=== PATIENT | female | born 1995 | race Caucasian/White ===

== ENCOUNTER 2016-12-23 17:47 | Emergency (ER) | payer BC ==
[2016-12-23 17:55] VITALS: BP 123/63; PULSE 75; RESP 20; TEMP 98.4
--- NOTE | 2016-12-23 18:02 | ED ---
Upper Extremity HPI - General Chief Complaint: Extremity Injury, Upper Stated Complaint: L hand injury Time Seen by Provider: 12/23/16 17:56 Source: patient, RN notes reviewed Mode of arrival: ambulatory Limitations: no limitations - History of Present Illness Initial Comments: 21-year-old female presents emergency Department chief complaint left hand some injury. She states that she was playing basketball and states that the ball caught her thumb and bend it. Patient went to pain at the base of her thumb and worse with movement. She states pain radiates up into her forearm. Patient denies any paresthesias. Patient denies any wrist pain or any pain over her other digits. Place: outdoors - Related Data Home Medications Medication Instructions Recorded Confirmed Levofloxacin [Levaquin] 1 tab PO DAILY 12/20/15 12/20/15 Promethazine 6.25MG/5Ml [Phenergan 5 ml PO QID 12/20/15 12/20/15 Syrup] predniSONE 1 tab PO BID 12/20/15 12/20/15 Previous Rx's Medication Instructions Recorded Albuterol Inhaler [Ventolin Hfa 2 puff INHALATION Q4HR PRN #1 12/21/15 Inhaler] inhaler Benzonatate [Tessalon Perles] 200 mg PO TID PRN #30 capsule 12/21/15 Ibuprofen [Motrin] 600 mg PO Q8HR PRN #30 tab 12/23/16 Allergies Allergy/AdvReac Type Severity Reaction Status Date / Time Sulfa (Sulfonamide AdvReac Swelling Verified 12/23/16 17:55 Antibiotics) Review of Systems ROS Statement: Those systems with pertinent positive or pertinent negative responses have been documented in the HPI. ROS Other: All systems not noted in ROS Statement are negative. Past Medical History Past Medical History: No Reported History History of Any Multi-Drug Resistant Organisms: None Reported Past Surgical History: No Surgical Hx Reported Additional Past Surgical History / Comment(s): cyst on right foot removed Past Psychological History: Anxiety Smoking Status: Current every day smoker Past Alcohol Use History: None Reported Past Drug Use History: None Reported General Exam Limitations: no limitations General appearance: alert, in no apparent distress Respiratory exam: Present: normal lung sounds bilaterally. Absent: respiratory distress, wheezes, rales, rhonchi, stridor Cardiovascular Exam: Present: regular rate, normal rhythm, normal heart sounds. Absent: systolic murmur, diastolic murmur, rubs, gallop, clicks Extremities exam: Present: other (Left hand there is tenderness over the first MCP, there is essentially no swelling no ecchymosis neurovascular intact there is no snuffbox tenderness there is no tenderness over digits 2 through 5 and no radius or ulnar tenderness) Skin exam: Present: warm, dry, intact, normal color. Absent: rash Course Vital Signs 12/23/16 17:52 Temperature 98.4 F Pulse Rate 75 Respiratory 20 Rate Blood Pressure 123/63 O2 Sat by Pulse 98 Oximetry Medical Decision Making - Medical Decision Making 21-year-old female presented for left hand thumb injury. There is no acute fracture. Patient has a left thumb sprain. Patient be discharged with ibuprofen, Abel wrap. Return parameters were discussed. Disposition Clinical Impression: Sprain of left thumb Disposition: HOME SELF-CARE Condition: Stable Instructions: Hand Sprain (ED) Additional Instructions: Please return to the Emergency Department if symptoms worsen or any other concerns. Prescriptions: Ibuprofen [Motrin] 600 mg PO Q8HR PRN #30 tab PRN Reason: Pain Referrals: Darin Novoa MD [Primary Care Provider] - 1-2 days Time of Disposition: 18:14
--- NOTE | 2016-12-23 18:50 | XR ---
EXAMINATION TYPE: XR hand complete LT DATE OF EXAM: 12/23/2016 COMPARISON: NONE HISTORY: Pain TECHNIQUE: 3 views FINDINGS: I see no fracture nor dislocation. Metacarpals are intact. There are no erosions. IMPRESSION: Negative left hand exam.
== END 2016-12-23 18:27 | disposition home or self-care (01) ==
LOC: EC 17:47
DX: S63.602A Unspecified sprain of left thumb, initial encounter (principal); F17.200 Nicotine dependence, unspecified, uncomplicated; Z79.52 Long term (current) use of systemic steroids; Z79.899 Other long term (current) drug therapy; Z88.2 Allergy status to sulfonamides; W21.05XA Struck by basketball, initial encounter; Y93.67 Activity, basketball
CPT/HCPCS: 99283

== ENCOUNTER 2017-03-07 12:49 | Emergency (ER) | payer BC ==
[2017-03-07 12:56] VITALS: BP 118/57; PULSE 87; RESP 18; TEMP 99
--- NOTE | 2017-03-07 13:03 | ED ---
General Adult HPI - General Chief complaint: Eye Problems Stated complaint: Eye Redness/Congestion Time Seen by Provider: 03/07/17 12:54 Source: patient, RN notes reviewed Mode of arrival: ambulatory Limitations: no limitations - History of Present Illness Initial comments: 21-year-old female presents to the emergency department with a chief complaint of right eye redness and drainage along with cough and congestion. Patient states she's been sick for about 2 days. Patient denies any high fevers with this. Patient states she hasn't had any nausea or vomiting. Patient does admit to history of pneumonia in the past. Patient states that she is no changes in vision it is itchy and irritated. Patient denies any ear pain or throat pain. Patient states she was concerned due to the eye redness with drainage along with the congestion so she thought that she should be evaluated. Patient denies any other symptoms at this time. Patient denies any recent fever, chills, shortness of breath, chest pain, back pain, abdominal pain, nausea vomiting, numbness or tingling, dysuria or hematuria, constipation or diarrhea, headaches or visual changes, or any other current symptoms. - Related Data Previous Rx's Medication Instructions Recorded Tobramycin 0.3% Ophth Oint [Tobrex 1 applic BOTH EYES TID #1 tube 03/07/17 0.3% Ophth Oint] Allergies Allergy/AdvReac Type Severity Reaction Status Date / Time Sulfa (Sulfonamide AdvReac Swelling Verified 03/07/17 12:56 Antibiotics) Review of Systems ROS Statement: Those systems with pertinent positive or pertinent negative responses have been documented in the HPI. ROS Other: All systems not noted in ROS Statement are negative. Past Medical History Past Medical History: No Reported History History of Any Multi-Drug Resistant Organisms: None Reported Past Surgical History: No Surgical Hx Reported Additional Past Surgical History / Comment(s): cyst on right foot removed Past Psychological History: Anxiety Smoking Status: Current every day smoker Past Alcohol Use History: None Reported Past Drug Use History: None Reported General Exam - General Exam Comments Initial Comments: General exam: Alert, active, comfortable in no apparent distress Head: Normocephalic Eyes: Normal reaction of pupils, equal size, normal range of extraocular motion , right eye conjunctival injection with purulent-like discharge Ears: normal external ear canals, pink tympanic membranes with normal cone of light Nose: clear with pink turbinates Throat: no erythema or exudates with normal sized tonsils Neck: no masses, no nuchal rigidity Chest: no chest wall deformity Lungs: equal air entry with no crackles or wheeze CVS: S1 and S2 normal with no audible mumurs, regular rhythm Spine: no scoliosis or deformity Skin: no rashes Neurological: No focal deficits, tone is normal in all 4 extremities Limitations: no limitations Course Vital Signs 03/07/17 12:54 Temperature 99 F Pulse Rate 87 Respiratory 18 Rate Blood Pressure 118/57 O2 Sat by Pulse 98 Oximetry Medical Decision Making - Medical Decision Making 21-year-old female presents emergency Department what appears to be right eye contact right lung with cough cold Raynaud's. We discussed this could be viral but due to the purulent discharge we'll put her in antibiotics ointment. We did discuss close follow-up we did discuss return parameters discussed all results. Patient stated that she understood and she is in agreement plan. All questions have been answered. She will be discharged Disposition Clinical Impression: Bacterial conjunctivitis, Upper respiratory infection Disposition: HOME SELF-CARE Condition: Stable Instructions: Upper Respiratory Infection (ED), Conjunctivitis (ED) Additional Instructions: Please use medication as discussed. Please follow up with family doctor if symptoms have not improved over the next two days. Please return to the emergency room if your symptoms increase or worsen or for any other concerns. Prescriptions: Tobramycin 0.3% Ophth Oint [Tobrex 0.3% Ophth Oint] 1 applic BOTH EYES TID #1 tube Referrals: Darin Novoa MD [Primary Care Provider] - 1-2 days Time of Disposition: 13:50
--- NOTE | 2017-03-07 13:49 | XR ---
EXAMINATION TYPE: XR chest 2V DATE OF EXAM: 03/07/2017 COMPARISON: 12/20/2015 INDICATION: Cough difficulty in breathing TECHNIQUE: Frontal and lateral views of the chest are obtained. FINDINGS: The heart size is normal. The pulmonary vasculature is normal. The lungs are clear. IMPRESSION: 1. No acute pulmonary process.
== END 2017-03-07 13:49 | disposition home or self-care (01) ==
LOC: EC 12:49
DX: H10.89 Other conjunctivitis (principal); J06.9 Acute upper respiratory infection, unspecified; F17.200 Nicotine dependence, unspecified, uncomplicated; Z88.2 Allergy status to sulfonamides
CPT/HCPCS: 71020; 99283

== ENCOUNTER 2018-03-17 16:48 | Emergency (ER) | payer OTHER, BC ==
[2018-03-17 17:16] VITALS: BP 115/61; PULSE 66; RESP 18; TEMP 98.1
[2018-03-17] MEDS ORDERED: HYDROcodone/APAP 5-325MG 1 EACH TAB PO STA ×2 (20:12→20:22)
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
--- NOTE | 2018-03-17 20:15 | XR ---
EXAMINATION TYPE: XR knee complete RT DATE OF EXAM: 03/17/2018 COMPARISON: NONE HISTORY: Knee pain TECHNIQUE: 3 views FINDINGS: I see no fracture nor dislocation. Joint spaces are normal. There is no sign of joint effus ion. IMPRESSION: Negative right knee exam.
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
== END 2018-03-17 20:45 | disposition home or self-care (01) ==
LOC: EC 16:48
DX: M25.561 Pain in right knee (principal); R51 Headache; R40.2142 Coma scale, eyes open, spontaneous, at arrival to emergency department; R40.2252 Coma scale, best verbal response, oriented, at arrival to emergency department; R40.2362 Coma scale, best motor response, obeys commands, at arrival to emergency department; F17.200 Nicotine dependence, unspecified, uncomplicated; Z88.2 Allergy status to sulfonamides; V89.2XXA Person injured in unspecified motor-vehicle accident, traffic, initial encounter; Y92.410 Unspecified street and highway as the place of occurrence of the external cause
CPT/HCPCS: 70450; 72125; 99284

== ENCOUNTER 2018-09-02 00:49 | Emergency (ER) | payer BC ==
[2018-09-02 00:57] VITALS: RESP 20
[2018-09-02] MEDS ORDERED: PROMETHAZ-COD 6.25-10 MG/5 ML 5 ML CUP PO STA (01:08)
[2018-09-02] MEDS ORDERED: methylPREDNISolone SOD SUCCI 125 MG/2 ML VIAL IM ONE (01:08)
--- NOTE | 2018-09-02 01:12 | ED ---
URI HPI - General Chief Complaint: Upper Respiratory Infection Stated Complaint: 30 day cough/ Nosebleed/Back Pain Time Seen by Provider: 09/02/18 00:59 Source: patient Mode of arrival: ambulatory Limitations: no limitations - History of Present Illness Initial Comments: 23-year-old female patient presents to the emergency department today for evaluation of cough 1 month. Patient states that she developed upper respiratory infection approximately one month ago. Patient states that she started to improve, but about a week ago the cough seemed to suddenly get worse again. Patient states initially she was coughing up sputum, denies any hemoptysis. She denies any fevers or chills with this. Patient states she is having upper back pain and chest discomfort with coughing. States she has also had some epistaxis over the last week. She is able to get the bleeding to stop. She does admit to smoking of one pack of cigarettes per day. Patient denies any recent rash, chest pain, abdominal pain, nausea, vomiting, diarrhea, constipation, back pain, numbness, tingling, weakness, hematuria, dysuria, urinary urgency, urinary frequency, headache, visual changes, or any other complaints. - Related Data Previous Rx's Medication Instructions Recorded Albuterol Sulfate [Proair Hfa] 1 - 2 puff INHALATION Q6HR PRN #1 09/02/18 inhaler Azithromycin [Zithromax Z-pack] 0 mg PO DIRECTED #6 tab 09/02/18 Promethaz-Cod 6.25-10 mg/5 ml 5 ml PO Q4HR PRN 3 Days #90 ml 09/02/18 [Phenergan with Codeine] predniSONE 50 mg PO DAILY #5 tablet 09/02/18 Allergies Allergy/AdvReac Type Severity Reaction Status Date / Time Sulfa (Sulfonamide AdvReac Swelling Verified 09/02/18 00:57 Antibiotics) Review of Systems ROS Statement: Those systems with pertinent positive or pertinent negative responses have been documented in the HPI. ROS Other: All systems not noted in ROS Statement are negative. Past Medical History Past Medical History: No Reported History History of Any Multi-Drug Resistant Organisms: None Reported Past Surgical History: No Surgical Hx Reported Additional Past Surgical History / Comment(s): cyst on right foot removed Past Psychological History: Anxiety, Depression Smoking Status: Current every day smoker Past Alcohol Use History: None Reported Past Drug Use History: None Reported General Exam Limitations: no limitations General appearance: alert, in no apparent distress, other (Physical well- developed, well-nourished adult female patient in no acute distress. Vital signs upon presentation are temperature 98.4F, pulse 84, respirations 20, blood pressure 106/62, pulse ox 100% on room air.) Eye exam: Present: normal appearance, PERRL, EOMI. Absent: scleral icterus, conjunctival injection, periorbital swelling ENT exam: Present: normal exam, normal oropharynx, mucous membranes moist, TM's normal bilaterally Respiratory exam: Present: normal lung sounds bilaterally. Absent: respiratory distress, wheezes, rales, rhonchi, stridor Cardiovascular Exam: Present: regular rate, normal rhythm, normal heart sounds. Absent: systolic murmur, diastolic murmur, rubs, gallop, clicks GI/Abdominal exam: Present: soft, normal bowel sounds. Absent: distended, tenderness, guarding, rebound, rigid Neurological exam: Present: alert, oriented X3, CN II-XII intact Psychiatric exam: Present: normal affect, normal mood Skin exam: Present: warm, dry, intact, normal color. Absent: rash Course Vital Signs 09/02/18 00:54 Temperature 98.4 F Pulse Rate 84 Respiratory 20 Rate Blood Pressure 106/62 O2 Sat by Pulse 100 Oximetry Medical Decision Making - Medical Decision Making 23-year-old female patient presents to the emergency department today for evaluation of cough 1 month. Physical examination is unremarkable. Lungs are clear to auscultation with good air movement. Patient does report intermittent shortness of breath and wheezing with this. Denies any hemoptysis or fever. Chest x-ray was obtained and showed no acute cardiopulmonary process. Patient symptoms are consistent with acute bronchitis. We'll treat with azithromycin for possible arterial bronchitis that she is a smoker. She also be given prednisone, Provera, and cough medication. She is instructed to follow-up with her primary care physician for recheck in 1-2 days. Return parameters discussed in detail. She verbalizes understanding and agrees with this plan. - Radiology Data Radiology results: report reviewed, image reviewed Two-view x-ray of the chest is obtained. Report was reviewed in its entirety. Impression by Dr. Adair shows normal chest x-rays. Disposition Clinical Impression: Acute bronchitis Disposition: HOME SELF-CARE Condition: Good Instructions (If sedation given, give patient instructions): Acute Bronchitis ( ED) Additional Instructions: Take medications as directed. Consider smoking cessation. Follow up with your primary care physician for recheck in 1-2 days. Return to the emergency department for any new, worsening, or concerning symptoms. Prescriptions: Albuterol Sulfate [Proair Hfa] 1 - 2 puff INHALATION Q6HR PRN #1 inhaler PRN Reason: Shortness Of Breath Azithromycin [Zithromax Z-pack] 0 mg PO DIRECTED #6 tab predniSONE 50 mg PO DAILY #5 tablet Promethaz-Cod 6.25-10 mg/5 ml [Phenergan with Codeine] 5 ml PO Q4HR PRN 3 Days # 90 ml PRN Reason: Cough Is patient prescribed a controlled substance at d/c from ED?: No Referrals: Darin Novoa MD [Primary Care Provider] - 1-2 days Time of Disposition: 01:53
[2018-09-02] MEDS ORDERED: DEXAMETHASONE SOD PHOSPHATE 10 MG/ML 1 ML VIAL IV STA (01:23)
--- NOTE | 2018-09-02 01:46 | XR ---
EXAM: XR Chest, 2 Views CLINICAL HISTORY: Pain TECHNIQUE: Frontal and lateral views of the chest. COMPARISON: Chest x-ray dated 03/07/2017 FINDINGS: Lungs: Unremarkable. No consolidation. Pleural space: Unremarkable. No pneumothorax. Heart: Unremarkable. No cardiomegaly. Mediastinum: Unremarkable. Bones/joints: Unremarkable. IMPRESSION: Normal chest x-rays.
[2018-09-02 02:18] VITALS: BP 112/65; PULSE 68; TEMP 98.3
== END 2018-09-02 02:17 | disposition home or self-care (01) ==
LOC: EC 00:49
DX: J20.9 Acute bronchitis, unspecified (principal); R04.0 Epistaxis; M54.6 Pain in thoracic spine; F17.210 Nicotine dependence, cigarettes, uncomplicated; Z88.2 Allergy status to sulfonamides
CPT/HCPCS: 71046; 96372; 99284

== ENCOUNTER 2020-06-09 20:10 | Emergency (ER) | payer BC ==
[2020-06-09 20:18] VITALS: BP 122/80; PULSE 62; RESP 18; TEMP 98
[2020-06-09] MEDS ORDERED: KETOROLAC 15 MG/ML 1 ML VIAL IM STA (20:40)
--- NOTE | 2020-06-09 21:02 | ED ---
Upper Extremity HPI - General Chief Complaint: Extremity Injury, Upper Stated Complaint: Bilateral Hand Injury Time Seen by Provider: 06/09/20 20:20 Source: patient Mode of arrival: ambulatory Limitations: no limitations - History of Present Illness Initial Comments: 25-year-old female presenting to the emergency room with a chief complaint of hand pain. Patient reports about 8 hours prior to arrival she was punching a metal pole with both of her hands. Now she reports tenderness along the third or fourth MCP joints and bilateral hands. She reports full range of motion but is painful when she opens and closes her hand. She denies any numbness or tingling. She does report ecchymosis in the region of tenderness. Denies taking medication to alleviate the symptoms. - Related Data Previous Rx's Medication Instructions Recorded Albuterol Sulfate [Proair Hfa] 1 - 2 puff INHALATION Q6HR PRN #1 09/02/18 inhaler Azithromycin [Zithromax Z-pack (6 0 mg PO DIRECTED #6 tab 09/02/18 tabs)] Promethaz-Cod 6.25-10 mg/5 ml 5 ml PO Q4HR PRN 3 Days #90 ml 09/02/18 [Phenergan with Codeine] predniSONE 50 mg PO DAILY #5 tablet 09/02/18 Allergies Allergy/AdvReac Type Severity Reaction Status Date / Time Sulfa (Sulfonamide AdvReac Swelling Verified 06/09/20 20:14 Antibiotics) Review of Systems ROS Statement: Those systems with pertinent positive or pertinent negative responses have been documented in the HPI. ROS Other: All systems not noted in ROS Statement are negative. Past Medical History Past Medical History: No Reported History History of Any Multi-Drug Resistant Organisms: None Reported Past Surgical History: No Surgical Hx Reported Additional Past Surgical History / Comment(s): cyst on right foot removed Past Psychological History: Anxiety, Depression Smoking Status: Current every day smoker Past Alcohol Use History: Occasional Past Drug Use History: None Reported General Exam Limitations: no limitations General appearance: alert, in no apparent distress Head exam: Present: atraumatic, normocephalic, normal inspection Eye exam: Present: normal appearance, PERRL, EOMI Pupils: Present: normal accommodation ENT exam: Present: normal exam, normal oropharynx, mucous membranes moist, TM's normal bilaterally, normal external ear exam Neck exam: Present: normal inspection, full ROM. Absent: tenderness Respiratory exam: Present: normal lung sounds bilaterally. Absent: respiratory distress, wheezes, rales Cardiovascular Exam: Present: regular rate, normal rhythm, normal heart sounds. Absent: systolic murmur, diastolic murmur GI/Abdominal exam: Present: soft. Absent: distended, tenderness, guarding, rebound Extremities exam: Present: full ROM, tenderness, normal capillary refill, other (+2 ulnar radial pulses laterally.). Absent: normal inspection (Ecchymosis in the third and fourth MCP joints and bilateral hands. Also tenderness in those regions.), pedal edema, joint swelling, calf tenderness Back exam: Present: normal inspection, full ROM. Absent: tenderness, CVA tenderness (R), CVA tenderness (L), muscle spasm, paraspinal tenderness, vertebral tenderness Neurological exam: Present: alert, oriented X3, normal gait Psychiatric exam: Present: normal affect, normal mood. Absent: depressed, agitated Skin exam: Present: warm, dry, intact, normal color Course Vital Signs 06/09/20 20:15 Temperature 98 F Pulse Rate 62 Respiratory 18 Rate Blood Pressure 122/80 O2 Sat by Pulse 99 Oximetry Medical Decision Making - Medical Decision Making 25-year-old female presenting to the emergency department with a chief complaint of hand pain. Patient punched a metal pole. On physical examination, patient has MCP joint tenderness where her hand make contact with the pole. X-rays of bilateral hands are unremarkable. X-ray reveals an old right fifth metacarpal fracture in the right hand. No acute new fractures. Patient will be discharged with Tylenol 3 starter pack. She was advised to apply ice compress. Strict return parameters were thoroughly discussed with patient was understanding and agreeable. Case discussed with physician. Disposition Clinical Impression: Injury of right hand, Injury of left hand Disposition: HOME SELF-CARE Condition: Stable Instructions (If sedation given, give patient instructions): Hand Sprain (ED) Additional Instructions: Apply ice compress an alternate between Tylenol Motrin for pain control. Return to emergency department if symptoms worsen. Is patient prescribed a controlled substance at d/c from ED?: No Referrals: Darin Novoa MD [Primary Care Provider] - 1-2 days Time of Disposition: 21:31
--- NOTE | 2020-06-09 21:24 | XR ---
EXAMINATION TYPE: XR hand complete bilateral DATE OF EXAM: 06/09/2020 COMPARISON: 12/16/2007 right hand HISTORY: Pain. Trauma. TECHNIQUE: 3 views each hand FINDINGS: There is deformity of the right fifth metacarpal related to old healed fracture. Left hand appears intact without sign of fracture nor dislocation. There are no erosions. There is no subluxati on. Fingers appear intact. The carpal bones are intact. IMPRESSION: Old healed fracture right fifth metacarpal. No acute fracture seen. No evidence of inflam matory arthritis.
[2020-06-09] MEDS ORDERED: ACET/COD 300 MG/30 MG STARTER PACK 6 TAB BTL PO STA (21:31)
== END 2020-06-09 21:42 | disposition home or self-care (01) ==
LOC: EC 20:10
DX: S69.91XA Unspecified injury of right wrist, hand and finger(s), initial encounter (principal); S69.92XA Unspecified injury of left wrist, hand and finger(s), initial encounter; F17.200 Nicotine dependence, unspecified, uncomplicated; Z88.2 Allergy status to sulfonamides; W22.8XXA Striking against or struck by other objects, initial encounter
CPT/HCPCS: 73130; 99283; 96372; J1885

== ENCOUNTER 2020-12-25 08:03 | Emergency (ER) | payer BC, OTHER ==
[2020-12-25 08:11] VITALS: BP 109/70; PULSE 57; RESP 18; TEMP 97.9
--- NOTE | 2020-12-25 08:47 | ED ---
General Adult HPI - General Chief complaint: Abdominal Pain Stated complaint: lower abd pain, cough Time Seen by Provider: 12/25/20 08:21 Source: patient Mode of arrival: ambulatory Limitations: no limitations - History of Present Illness Initial comments: Patient is a 25-year-old female presenting to the emergency department for 2 separate complaints. Patient states that about one week ago, while at work, she was pushing down hard on a piece of equipment that she was working on and felt a pop in her left lower quadrant. She states that she thought was just a muscle strain but the pain has continued over the past week and she is concerned that she might have a hernia. She denies any nausea or vomiting, no diarrhea. She denies any history of abdominal surgeries. Patient is also complaining of a cough that she's had over the past 2 weeks, continues to produce phlegm. She's had no fevers from this, she has had 2 separate Covid test, both were negative. She denies history of asthma or COPD. She is an every day smoker. She has no further complaints at this time. Upon arrival to the ER, her vitals are stable. - Related Data Home Medications Medication Instructions Recorded Confirmed guaiFENesin-DM 600/30MG [Mucinex 1 tab PO Q12HR PRN 12/25/20 12/25/20 Dm] Previous Rx's Medication Instructions Recorded methylPREDNISolone [Medrol Dose 4 mg PO DIRECTED #1 pack 12/25/20 Pack] Allergies Allergy/AdvReac Type Severity Reaction Status Date / Time Sulfa (Sulfonamide AdvReac Swelling Verified 12/25/20 08:11 Antibiotics) Review of Systems ROS Statement: Those systems with pertinent positive or pertinent negative responses have been documented in the HPI. ROS Other: All systems not noted in ROS Statement are negative. Past Medical History Past Medical History: No Reported History History of Any Multi-Drug Resistant Organisms: None Reported Past Surgical History: No Surgical Hx Reported Additional Past Surgical History / Comment(s): cyst on right foot removed Past Psychological History: Anxiety, Depression Smoking Status: Current every day smoker Past Alcohol Use History: Occasional Past Drug Use History: None Reported General Exam - General Exam Comments Initial Comments: GENERAL: Patient is well-developed and well-nourished. Patient is nontoxic and in no acute distress. HEAD: Atraumatic, normocephalic. EYES: Pupils equal round and reactive to light, extraocular movements intact, sclera anicteric, conjunctiva are normal. Eyelids were unremarkable. ENT: TMs normal, nares patent, oropharynx clear without exudates. Moist mucous membranes. NECK: Normal range of motion, supple without lymphadenopathy or JVD. LUNGS: Unlabored respirations. Breath sounds clear to auscultation bilaterally and equal. No wheezes rales or rhonchi. HEART: Regular rate and rhythm without murmurs, rubs or gallops. ABDOMEN: Soft, pain with palpation of left lower quadrant,, normoactive bowel sounds. No guarding, no rebound. No masses appreciated. : Deferred MUSCULOSKELETAL: Normal extremities with adequate strength and normal range of motion, no pitting or edema. No clubbing or cyanosis. NEUROLOGICAL: Patient is alert and oriented x 3. Motor and sensory are also intact. Cranial nerves II through XII grossly intact. Symmetrical smile. Normal speech, normal gait. PSYCH: Normal mood, normal affect. SKIN: Warm, Dry, normal turgor, no rashes or lesions noted. Limitations: no limitations Course Vital Signs 12/25/20 08:08 Temperature 97.9 F Pulse Rate 57 L Respiratory 18 Rate Blood Pressure 109/70 O2 Sat by Pulse 100 Oximetry Medical Decision Making - Medical Decision Making Patient is a 25-year-old female here for 2 separate complaints of left lower quadrant pain after pushing down heavily on a piece of equipment at work one week ago. She is also complaining of a cough for the last 2 weeks. Her vitals are stable. Ultrasound shows no evidence of hernia on the left lower quadrant. This is most likely a muscle tear or strain. Chest x-ray is clear no signs of pneumonia. I discussed with her this most likely bronchitis. I will give heard steroid Dosepak to help with the cough. She is stable for discharge. She requesting a work note. Return parameters were discussed with her and she verbalized understanding. Case discussed with Dr. Grajeda. Disposition Clinical Impression: Cough, Acute bronchitis, Abdominal muscle strain Disposition: HOME SELF-CARE Condition: Stable Instructions (If sedation given, give patient instructions): Muscle Strain (ED) Additional Instructions: Please return to the Emergency Department if symptoms worsen or any other concerns. Take steroids as prescribed for possible bronchitis. May take Tylenol or Motrin for abdominal muscle pain. Prescriptions: methylPREDNISolone [Medrol Dose Pack] 4 mg PO DIRECTED #1 pack Is patient prescribed a controlled substance at d/c from ED?: No Referrals: Darin Novoa MD [Primary Care Provider] - 1-2 days Time of Disposition: 10:51
--- NOTE | 2020-12-25 09:19 | XR ---
EXAMINATION TYPE: XR chest 2V DATE OF EXAM: 12/25/2020 COMPARISON: 09/02/2018 HISTORY: Cough x2-3 weeks TECHNIQUE: Frontal and lateral views of the chest are obtained. FINDINGS: There is no focal air space opacity, pleural effusion, or pneumothorax seen. The cardiac silhouette size is within normal limits. The osseous structures are intact. IMPRESSION: No acute cardiopulmonary process.
--- NOTE | 2020-12-25 10:29 | US ---
EXAMINATION TYPE: US abdomen limited DATE OF EXAM: 12/25/2020 COMPARISON: NONE CLINICAL HISTORY: LLQ pain x 1 week. Patient stated felt pulling and popping sensation LLQ and ML pel vis while pushing down on items, while at work last Thursday. No hernia is noted with or without Valsalva Maneuver in LLQ at area of pain. Left groin lymph node is imaged = 1.3 x 0.8 x 0.3cm and is also another area of patient's discomfort when bends over at waist . IMPRESSION: No sonographic evidence for hernia of the left groin.
== END 2020-12-25 10:57 | disposition home or self-care (01) ==
LOC: EC 08:03
DX: S39.011A Strain of muscle, fascia and tendon of abdomen, initial encounter (principal); J20.9 Acute bronchitis, unspecified; F32.9 Major depressive disorder, single episode, unspecified; F41.9 Anxiety disorder, unspecified; F17.200 Nicotine dependence, unspecified, uncomplicated; Z79.52 Long term (current) use of systemic steroids; X50.0XXA Overexertion from strenuous movement or load, initial encounter; Y99.0 Civilian activity done for income or pay
CPT/HCPCS: 71046; 76705; 99284

== ENCOUNTER → 2022-10-27 | Outpatient (CLI) | payer BC ==
--- NOTE | 2022-10-27 16:21 | NM ---
EXAMINATION TYPE: NM hepatobiliary w CCK DATE OF EXAM: 10/27/2022 COMPARISON: Gallbladder ultrasound 09/14/2022, CT abdomen pelvis 09/14/2022 HISTORY: Chronic cholecystitis TECHNIQUE: After the intravenous administration of 4.2 mCi Tc 99m Mebrofenin hepatobiliary scintigrap hy is performed. Immediate images post injection. FINDINGS: There is satisfactory initial accumulation of tracer by the liver. The gallbladder is visualized wit hin 16 minutes. The small bowel activity is noted within 24 minutes. At one hour CCK was administer ed, patient was injected with 1.6 mcg of Kinevac, and gallbladder ejection fraction is calculated at 78 %, in the normal range. Therefore there is no scintigraphic evidence of cystic or common bile madi t obstruction to suggest acute cholecystitis or gallbladder dyskinesia. IMPRESSION: Exam is within normal limits.
== END | disposition home or self-care (01) ==
LOC: RADNMMAIN 10-21 12:37
PROVIDERS: ATTEND Surgery
DX: K81.1 Chronic cholecystitis (principal)
CPT/HCPCS: 78227; A9537; J2805

== ENCOUNTER 2023-06-13 18:55 | Emergency (ER) | payer BC ==
[2023-06-13 19:07] VITALS: RESP 18; TEMP 98.1
--- NOTE | 2023-06-13 19:30 | ED ---
General Adult HPI - General Chief complaint: Upper Respiratory Infection Stated complaint: Chest congestion,sob Time Seen by Provider: 06/13/23 19:29 Source: patient, RN notes reviewed Mode of arrival: ambulatory Limitations: no limitations - History of Present Illness Initial comments: 28-year-old female presents to the emergency department with chief complaint of cough with sputum production 2 weeks. She denies any fevers. She does admit to some tightness in her chest when she coughs. Otherwise this is not present. Has nausea, vomiting, sore throat, muscle aches. She denies any significant past medical history. - Related Data Home Medications Medication Instructions Recorded Confirmed guaiFENesin-DM 600/30MG [Mucinex 1 tab PO Q12HR PRN 12/25/20 12/25/20 Dm] Previous Rx's Medication Instructions Recorded methylPREDNISolone [Medrol Dose 4 mg PO DIRECTED #1 pack 12/25/20 Pack] Omeprazole [PriLOSEC] 40 mg PO DAILY #14 cap 09/14/22 Ondansetron Odt [Zofran Odt] 4 mg PO Q8HR PRN #10 tab 09/14/22 Amoxic-Pot Clav 875-125Mg 1 tab PO Q12HR #20 tab 06/13/23 [Augmentin 875-125] Allergies Allergy/AdvReac Type Severity Reaction Status Date / Time Sulfa (Sulfonamide AdvReac Swelling Verified 12/25/20 08:11 Antibiotics) Review of Systems ROS Statement: Those systems with pertinent positive or pertinent negative responses have been documented in the HPI. ROS Other: All systems not noted in ROS Statement are negative. Past Medical History Past Medical History: No Reported History History of Any Multi-Drug Resistant Organisms: None Reported Past Surgical History: Breast Surgery Additional Past Surgical History / Comment(s): cyst on right foot removed, lump removal from breast Past Psychological History: Anxiety, Depression Smoking Status: Current every day smoker Past Alcohol Use History: Occasional Past Drug Use History: None Reported General Exam Limitations: no limitations General appearance: alert, in no apparent distress Head exam: Present: atraumatic, normocephalic, normal inspection Eye exam: Present: normal appearance, PERRL, EOMI. Absent: scleral icterus, conjunctival injection, periorbital swelling ENT exam: Present: normal exam, normal oropharynx, mucous membranes moist Neck exam: Present: normal inspection. Absent: tenderness, meningismus, lymphadenopathy Respiratory exam: Present: normal lung sounds bilaterally. Absent: respiratory distress, wheezes, rales, rhonchi, stridor Cardiovascular Exam: Present: regular rate, normal rhythm, normal heart sounds. Absent: systolic murmur, diastolic murmur, rubs, gallop, clicks GI/Abdominal exam: Present: soft, normal bowel sounds. Absent: distended, tenderness, guarding, rebound, rigid Back exam: Present: normal inspection Neurological exam: Present: alert, oriented X3 Psychiatric exam: Present: normal affect, normal mood Skin exam: Present: warm, dry, intact, normal color. Absent: rash Course Vital Signs 06/13/23 06/13/23 18:57 21:36 Temperature 98.1 F Pulse Rate 65 60 Respiratory 18 18 Rate Blood Pressure 94/51 107/56 O2 Sat by Pulse 100 99 Oximetry Medical Decision Making - Medical Decision Making Was pt. sent in by a medical professional or institution (, PA, CAMPUS RECRUITING COORDINATOR, urgent care, hospital, or jail...) When possible be specific @ -No Did you speak to anyone other than the patient for history (EMS, parent, family, police, friend...)? What history was obtained from this source @ -No Did you review nursing and triage notes (agree or disagree)? Why? @ -I reviewed and agree with nursing and triage notes Were old charts reviewed (outside hosp., previous admission, EMS record, old EKG, old radiological studies, urgent care reports/EKG's, jail records)? Report findings @ -No old charts were reviewed Differential Diagnosis (chest pain, altered mental status, abdominal pain women, abdominal pain men, vaginal bleeding, weakness, fever, dyspnea, syncope, headache, dizziness, GI bleed, back pain, seizure, CVA, palpatations, mental health, musculoskeletal)? @ -Differential Dyspnea: Coronary syndrome, arrhythmia, tamponade, asthma, COPD, pulmonary embolism, pneumonia, pneumothorax, pulmonary effusion, anaphylaxis, diabetic ketoacidosis, flailed chest, pulmonary contusion, diaphragmatic rupture, anemia, neuromuscular, this is not meant to be an all-inclusive list. EKG interpreted by me (3pts min.). @ -EKG at 2003 shows sinus rhythm rate 60, AL 167, QRS 110, QT to QTc [id number] X-rays interpreted by me (1pt min.). @ -Chest x-ray interpreted by me shows no evidence of acute process CT interpreted by me (1pt min.). @ -None done U/S interpreted by me (1pt. min.). @ -None done What testing was considered but not performed or refused? (CT, X-rays, U/S, labs)? Why? @ -None What meds were considered but not given or refused? Why? @ -None Did you discuss the management of the patient with other professionals (professionals i.e. , PA, CAMPUS RECRUITING COORDINATOR, lab, RT, psych nurse, licensed social worker, corrections unit supervisor, teacher, army officer, hospice case manager)? Give summary @ -No Was smoking cessation discussed for >3mins.? @ -No Was critical care preformed (if so, how long)? @ -No Were there social determinants of health that impacted care today? How? (Homelessness, low income, unemployed, alcoholism, drug addiction, amos sportation, low edu. Level, literacy, decrease access to med. care, residential, rehab)? @ -No Was there de-escalation of care discussed even if they declined (Discuss DNR or withdrawal of care, Hospice)? DNR status @ -No What co-morbidities impacted this encounter? (DM, HTN, Smoking, COPD, CAD, Cancer, CVA, ARF, Chemo, Hep., AIDS, mental health diagnosis, sleep apnea, morbid obesity)? @ -None Was patient admitted / discharged? Hospital course, mention meds given and route, prescriptions, significant lab abnormalities, going to OR and other pertinent info. @ -Discharged. Patient presented to emergency department chief complaint of cough, congestion 2 weeks. Laboratory studies obtained which were essentially unremarkable including troponin and d-dimer which were negative. Covid, influenza, RSV negative. Disposition time delay due to delayed read on chest x- ray. Patient did not want to wait any longer. Patient will be treated for sinusitis as congestion symptoms have been going on for greater than 10 days without relief. Patient understands agreeable with discharge plan. Patient stable for discharge. Case discussed with Dr. Canales Undiagnosed new problem with uncertain prognosis? @ -No Drug Therapy requiring intensive monitoring for toxicity (Heparin, Nitro, Insulin, Cardizem)? @ -No Were any procedures done? @ -No Diagnosis/symptom? @ -sinusitis, URI Acute, or Chronic, or Acute on Chronic? @ -acute Uncomplicated (without systemic symptoms) or Complicated (systemic symptoms)? @ -uncomplicated Side effects of treatment? @ -No Exacerbation, Progression, or Severe Exacerbation? @ -No Poses a threat to life or bodily function? How? (Chest pain, USA, PR, pneumonia, PE, COPD, DKA, ARF, appy, cholecystitis, CVA, Diverticulitis, Homicidal, Suicidal, threat to staff... and all critical care pts) @ -No - Lab Data Result diagrams: 06/13/23 20:48 06/13/23 20:48 Lab Results 06/13/23 06/13/23 06/13/23 Range/Units 20:48 20:48 20:48 WBC 8.8 (3.8-10.6) k/uL RBC 4.40 (3.80-5.40) m/uL Hgb 13.7 (11.4-16.0) gm/dL Hct 39.5 (34.0-46.0) % MCV 89.9 (80.0-100.0) fL MCH 31.1 (25.0-35.0) pg MCHC 34.7 (31.0-37.0) g/dL RDW 11.6 (11.5-15.5) % Plt Count 218 (150-450) k/uL MPV 7.3 Neutrophils % 78 % Lymphocytes % 14 % Monocytes % 5 % Eosinophils % 1 % Basophils % 1 % Neutrophils # 6.9 (1.3-7.7) k/uL Lymphocytes # 1.3 (1.0-4.8) k/uL Monocytes # 0.4 (0-1.0) k/uL Eosinophils # 0.1 (0-0.7) k/uL Basophils # 0.1 (0-0.2) k/uL PT (10.0-12.5) sec INR (<1.2) APTT (22.0-30.0) sec D-Dimer (<0.60) mg/L FEU Sodium (137-145) mmol/L Potassium (3.5-5.1) mmol/L Chloride (98-107) mmol/L Carbon Dioxide (22-30) mmol/L Anion Gap mmol/L BUN (7-17) mg/dL Creatinine (0.52-1.04) mg/dL Est GFR (CKD-EPI)AfAm (>60 ml/min/1.73 sqM) Est GFR (CKD-EPI)NonAf (>60 ml/min/1.73 sqM) Glucose (74-99) mg/dL Plasma Lactic Acid Pramod (0.7-2.0) mmol/L Calcium (8.4-10.2) mg/dL Total Bilirubin (0.2-1.3) mg/dL AST (14-36) U/L ALT (4-34) U/L Alkaline Phosphatase (38-126) U/L Troponin I (0.000-0.034) ng/mL Total Protein (6.3-8.2) g/dL Albumin (3.5-5.0) g/dL Influenza Type A (PCR) Not Detected (Not Detectd) Influenza Type B (PCR) Not Detected (Not Detectd) RSV (PCR) Not Detected (Not Detectd) SARS-CoV-2 (PCR) Not Detected (Not Detectd) Group A Strep (PCR) NOT DETECTED (Not Detectd) 06/13/23 06/13/23 06/13/23 Range/Units 20:48 20:48 20:48 WBC (3.8-10.6) k/uL RBC (3.80-5.40) m/uL Hgb (11.4-16.0) gm/dL Hct (34.0-46.0) % MCV (80.0-100.0) fL MCH (25.0-35.0) pg MCHC (31.0-37.0) g/dL RDW (11.5-15.5) % Plt Count (150-450) k/uL MPV Neutrophils % % Lymphocytes % % Monocytes % % Eosinophils % % Basophils % % Neutrophils # (1.3-7.7) k/uL Lymphocytes # (1.0-4.8) k/uL Monocytes # (0-1.0) k/uL Eosinophils # (0-0.7) k/uL Basophils # (0-0.2) k/uL PT 11.0 (10.0-12.5) sec INR 1.0 (<1.2) APTT 26.2 (22.0-30.0) sec D-Dimer 0.27 (<0.60) mg/L FEU Sodium 140 (137-145) mmol/L Potassium 4.1 (3.5-5.1) mmol/L Chloride 105 (98-107) mmol/L Carbon Dioxide 26 (22-30) mmol/L Anion Gap 9 mmol/L BUN 13 (7-17) mg/dL Creatinine 0.56 (0.52-1.04) mg/dL Est GFR (CKD-EPI)AfAm >90 (>60 ml/min/1.73 sqM) Est GFR (CKD-EPI)NonAf >90 (>60 ml/min/1.73 sqM) Glucose 92 (74-99) mg/dL Plasma Lactic Acid Pramod 0.7 (0.7-2.0) mmol/L Calcium 9.3 (8.4-10.2) mg/dL Total Bilirubin 0.5 (0.2-1.3) mg/dL AST 19 (14-36) U/L ALT 17 (4-34) U/L Alkaline Phosphatase 70 (38-126) U/L Troponin I (0.000-0.034) ng/mL Total Protein 7.3 (6.3-8.2) g/dL Albumin 4.4 (3.5-5.0) g/dL Influenza Type A (PCR) (Not Detectd) Influenza Type B (PCR) (Not Detectd) RSV (PCR) (Not Detectd) SARS-CoV-2 (PCR) (Not Detectd) Group A Strep (PCR) (Not Detectd) 06/13/23 Range/Units 20:48 WBC (3.8-10.6) k/uL RBC (3.80-5.40) m/uL Hgb (11.4-16.0) gm/dL Hct (34.0-46.0) % MCV (80.0-100.0) fL MCH (25.0-35.0) pg MCHC (31.0-37.0) g/dL RDW (11.5-15.5) % Plt Count (150-450) k/uL MPV Neutrophils % % Lymphocytes % % Monocytes % % Eosinophils % % Basophils % % Neutrophils # (1.3-7.7) k/uL Lymphocytes # (1.0-4.8) k/uL Monocytes # (0-1.0) k/uL Eosinophils # (0-0.7) k/uL Basophils # (0-0.2) k/uL PT (10.0-12.5) sec INR (<1.2) APTT (22.0-30.0) sec D-Dimer (<0.60) mg/L FEU Sodium (137-145) mmol/L Potassium (3.5-5.1) mmol/L Chloride (98-107) mmol/L Carbon Dioxide (22-30) mmol/L Anion Gap mmol/L BUN (7-17) mg/dL Creatinine (0.52-1.04) mg/dL Est GFR (CKD-EPI)AfAm (>60 ml/min/1.73 sqM) Est GFR (CKD-EPI)NonAf (>60 ml/min/1.73 sqM) Glucose (74-99) mg/dL Plasma Lactic Acid Pramod (0.7-2.0) mmol/L Calcium (8.4-10.2) mg/dL Total Bilirubin (0.2-1.3) mg/dL AST (14-36) U/L ALT (4-34) U/L Alkaline Phosphatase (38-126) U/L Troponin I <0.012 (0.000-0.034) ng/mL Total Protein (6.3-8.2) g/dL Albumin (3.5-5.0) g/dL Influenza Type A (PCR) (Not Detectd) Influenza Type B (PCR) (Not Detectd) RSV (PCR) (Not Detectd) SARS-CoV-2 (PCR) (Not Detectd) Group A Strep (PCR) (Not Detectd) Disposition Clinical Impression: Sinusitis Disposition: HOME SELF-CARE Condition: Stable Instructions (If sedation given, give patient instructions): Upper Respiratory Infection (ED) Prescriptions: Amoxic-Pot Clav 875-125Mg [Augmentin 875-125] 1 tab PO Q12HR #20 tab Is patient prescribed a controlled substance at d/c from ED?: No Referrals: Darin Novoa MD [Primary Care Provider] - 1-2 days
[2023-06-13 21:04] LABS: Basophils # (A) 0.1 k/uL (0-0.2); Basophils % (A) 1 %; Eosinophils # (A) 0.1 k/uL (0-0.7); Eosinophils % (A) 1 %; HCT 39.5 % (34.0-46.0); HGB 13.7 gm/dL (11.4-16.0); Lymphocytes # (A) 1.3 k/uL (1.0-4.8); Lymphocytes % (A) 14 %; MCH 31.1 pg (25.0-35.0); MCHC 34.7 g/dL (31.0-37.0); MCV 89.9 fL (80.0-100.0); Mean Platelet Volume 7.3; Monocytes # (A) 0.4 k/uL (0-1.0); Monocytes % (A) 5 %; Neutrophils # (A) 6.9 k/uL (1.3-7.7); Neutrophils % (A) 78 %; Platelet Count 218 k/uL (150-450); RDW 11.6 % (11.5-15.5); WBC 8.8 k/uL (3.8-10.6)
[2023-06-13 21:14] LABS: ALT 17 U/L (4-34); AST 19 U/L (14-36); African American GFR (CKD) >90 (>60 ml/min/1.73 sqM); Albumin 4.4 g/dL (3.5-5.0); Alkaline Phosphatase 70 U/L (38-126); Anion Gap 9 mmol/L; Blood Urea Nitrogen 13 mg/dL (7-17); Calcium 9.3 mg/dL (8.4-10.2); Carbon Dioxide 26 mmol/L (22-30); Chloride 105 mmol/L (98-107); Glucose 92 mg/dL (74-99); Non-African American GFR(CKD) >90 (>60 ml/min/1.73 sqM); Potassium 4.1 mmol/L (3.5-5.1); Sodium 140 mmol/L (137-145); Total Bilirubin 0.5 mg/dL (0.2-1.3); Total Protein 7.3 g/dL (6.3-8.2)
[2023-06-13 21:33] LABS: Partial Thromboplastin Time 26.2 sec (22.0-30.0)
[2023-06-13 21:38] VITALS: BP 107/56; PULSE 60
[2023-06-13] MEDS ORDERED: IPRATROPIUM-ALBUTEROL 3 ML NEB INHALATION STA (22:11)
--- NOTE | 2023-06-14 00:38 | XR ---
EXAMINATION TYPE: XR chest 2V DATE OF EXAM: 06/13/2023 9:01 PM CLINICAL INDICATION:Female, 28 years old with history of cough; [facility] COMPARISON: 12/25/2020 TECHNIQUE: XR chest 2V. Frontal PA and lateral views of the chest. FINDINGS: Lines/Tubes: None. Heart/mediastinum: Cardiomediastinal silhouette is well defined. Heart size is normal. Mediastinum appears normal. Pulmonary vascularity: Not increased, Lungs/Pleura: There is no evidence of pleural effusion, focal consolidation, or pneumothorax. Musculoskeletal: No acute osseous abnormality demonstrated in the limits of the exam. Other findings: None. IMPRESSION: No acute cardiopulmonary abnormality.
== END 2023-06-13 22:58 | disposition home or self-care (01) ==
LOC: EC 18:55
DX: J32.9 Chronic sinusitis, unspecified (principal); I45.10 Unspecified right bundle-branch block; I25.2 Old myocardial infarction; F17.200 Nicotine dependence, unspecified, uncomplicated; Z86.59 Personal history of other mental and behavioral disorders; Z20.822 Contact with and (suspected) exposure to COVID-19
CPT/HCPCS: 36415; 71046; 80053; 83605; 84484; 85025; 85379; 85610; 85730; 87636; 87651; 93005; 99285

== ENCOUNTER 2024-04-17 07:42 | Emergency (ER) | payer BC ==
[2024-04-17] MEDS: ONDANSETRON 4 MG/2 ML VIAL IVP STA (08:22)
[2024-04-17] MEDS: HYDROmorphone 1 MG/ML 1 ML SYRINGE IVP STA (08:23)
[2024-04-17] MEDS: SODIUM CHLORIDE 0.9% 1,000 ML IV STA (08:27)
[2024-04-17 08:29] LABS: Basophils % (A) 0 %; Eosinophils # (A) 0.1 k/uL (0-0.7); Eosinophils % (A) 1 %; HCT 41.2 % (34.0-46.0); HGB 14.6 gm/dL (11.4-16.0); Lymphocytes # (A) 1.3 k/uL (1.0-4.8); Lymphocytes % (A) 12 %; MCH 31.1 pg (25.0-35.0); MCHC 35.6 g/dL (31.0-37.0); MCV 87.5 fL (80.0-100.0); Mean Platelet Volume 7.5; Monocytes # (A) 0.4 k/uL (0-1.0); Monocytes % (A) 4 %; Neutrophils # (A) 8.7 k/uL (1.3-7.7); Neutrophils % (A) 82 %; Platelet Count 236 k/uL (150-450); RBC 4.71 m/uL (3.80-5.40); WBC 10.7 k/uL (3.8-10.6)
[2024-04-17 08:37] LABS: INR 0.9 (<1.2); Prothrombin Time 10.2 sec (10.0-12.5)
[2024-04-17 08:38] LABS: ALT 16 U/L (4-34); AST 20 U/L (14-36); African American GFR (CKD) >90 (>60 ml/min/1.73 sqM); Albumin 4.9 g/dL (3.5-5.0); Alkaline Phosphatase 71 U/L (38-126); Amylase 46 U/L (30-110); Anion Gap 13 mmol/L; Blood Urea Nitrogen 14 mg/dL (7-17); Carbon Dioxide 20 mmol/L (22-30); Chloride 106 mmol/L (98-107); Glucose 110 mg/dL (74-99); Lipase 46 U/L (23-300); Non-African American GFR(CKD) >90 (>60 ml/min/1.73 sqM); Partial Thromboplastin Time 25.2 sec (22.0-30.0); Potassium 4.5 mmol/L (3.5-5.1); Sodium 139 mmol/L (137-145); Total Bilirubin 0.7 mg/dL (0.2-1.3); Total Protein 7.7 g/dL (6.3-8.2)
--- NOTE | 2024-04-17 08:46 | ED ---
General Adult HPI - General Chief complaint: Abdominal Pain Stated complaint: diverticulitis Time Seen by Provider: 04/17/24 07:47 Source: patient, RN notes reviewed, old records reviewed Mode of arrival: ambulatory Limitations: no limitations - History of Present Illness Initial comments: 28-year-old female presenting for evaluation of epigastric abdominal pain, sudden onset several hours prior to arrival. Associated nausea vomiting. Pain is severe. Patient denies preceding symptoms. Denies prior abdominal surgeries. - Related Data Home Medications Medication Instructions Recorded Confirmed guaiFENesin-DM 600/30MG [Mucinex 1 tab PO Q12HR PRN 12/25/20 12/25/20 Dm] Previous Rx's Medication Instructions Recorded methylPREDNISolone [Medrol Dose 4 mg PO DIRECTED #1 pack 12/25/20 Pack] Omeprazole [PriLOSEC] 40 mg PO DAILY #14 cap 09/14/22 Ondansetron Odt [Zofran Odt] 4 mg PO Q8HR PRN #10 tab 09/14/22 Amoxic-Pot Clav 875-125Mg 1 tab PO Q12HR #20 tab 06/13/23 [Augmentin 875-125] Allergies Allergy/AdvReac Type Severity Reaction Status Date / Time Sulfa (Sulfonamide AdvReac Swelling Verified 04/17/24 08:02 Antibiotics) Review of Systems ROS Statement: Those systems with pertinent positive or pertinent negative responses have been documented in the HPI. ROS Other: All systems not noted in ROS Statement are negative. Past Medical History Past Medical History: No Reported History History of Any Multi-Drug Resistant Organisms: None Reported Past Surgical History: Breast Surgery Additional Past Surgical History / Comment(s): cyst on right foot removed, lump removal from breast Past Psychological History: Anxiety, Depression Smoking Status: Current every day smoker Past Alcohol Use History: Occasional Past Drug Use History: None Reported General Exam Limitations: no limitations General appearance: alert, in distress Head exam: Present: atraumatic, normocephalic Eye exam: Present: normal appearance, PERRL ENT exam: Present: normal exam Neck exam: Present: normal inspection. Absent: tenderness, meningismus Respiratory exam: Present: normal lung sounds bilaterally. Absent: respiratory distress, wheezes, rales Cardiovascular Exam: Present: regular rate, bradycardia GI/Abdominal exam: Present: soft, tenderness (Epigastric). Absent: distended Extremities exam: Present: normal inspection, normal capillary refill Neurological exam: Present: alert, oriented X3, CN II-XII intact. Absent: motor sensory deficit Course Vital Signs 04/17/24 04/17/24 04/17/24 07:59 08:30 08:49 Temperature 97.7 F 97.9 F Pulse Rate 62 58 L 49 L Respiratory 20 22 18 Rate Blood Pressure 100/70 93/52 88/54 O2 Sat by Pulse 100 100 100 Oximetry 04/17/24 04/17/24 04/17/24 09:35 10:03 10:30 Temperature 97.6 F Pulse Rate 47 L 45 L 49 L Respiratory 18 16 18 Rate Blood Pressure 81/54 85/43 97/52 O2 Sat by Pulse 100 100 100 Oximetry Medical Decision Making - Medical Decision Making Was pt. sent in by a medical professional or institution (, PA, COMBINATION WELDER APPRENTICE, urgent care, hospital, or senior care...) When possible be specific @ -No Did you speak to anyone other than the patient for history (EMS, parent, family, police, friend...)? What history was obtained from this source @ -No Did you review nursing and triage notes (agree or disagree)? Why? @ -I reviewed and agree with nursing and triage notes Were old charts reviewed (outside hosp., previous admission, EMS record, old EKG, old radiological studies, urgent care reports/EKG's, senior care records)? Report findings @ -No old charts were reviewed Differential Abdominal Pain Women: Appendicitis, Cholecystitis, diverticulosis, ischemic bowel, pancreatitis, hepatitis, UTI, gastroenteritis, AAA, incarcerated hernia, bowel obstruction, constipation, inflammatory bowel, hepatitis, peptic ulcer disease, splenic infarction, perforated viscus, vulvitis, ovarian torsion, PID, kidney stone, placenta abruption, this is not meant to be an all-inclusive list EKG interpreted by me (3pts min.). @ -As above X-rays interpreted by me (1pt min.). @ -None done CT interpreted by me (1pt min.). @ -CT of the abdomen pelvis with contrast negative for acute findings U/S interpreted by me (1pt. min.). @Ultrasound of the right upper quadrant negative for acute cholecystitis, no acute findings What testing was considered but not performed or refused? (CT, X-rays, U/S, labs)? Why? @ -None What meds were considered but not given or refused? Why? @ -None Did you discuss the management of the patient with other professionals (professionals i.e. , PA, COMBINATION WELDER APPRENTICE, lab, RT, psych nurse, social media designer, cook restaurant, teacher, aoc airspace control officer, counseling case manager)? Give summary @ -No Was smoking cessation discussed for >3mins.? @ -No Was critical care preformed (if so, how long)? @ -No Were there social determinants of health that impacted care today? How? (Homelessness, low income, unemployed, alcoholism, drug addiction, transportation, low edu. Level, literacy, decrease access to med. care, [place] [facility], rehab)? @ -No Was there de-escalation of care discussed even if they declined (Discuss DNR or withdrawal of care, Hospice)? DNR status @ -No What co-morbidities impacted this encounter? (DM, HTN, Smoking, COPD, CAD, Cancer, CVA, ARF, Chemo, Hep., AIDS, mental health diagnosis, sleep apnea, morbid obesity)? @ -None Was patient admitted / discharged? Hospital course, mention meds given and route, prescriptions, significant lab abnormalities, going to OR and other pertinent info. @ -[28-year-old female with abdominal pain, nausea vomiting diarrhea. Patient is in moderate to severe pain upon arrival. Symptomatic treatment and workup is initiated. Patient receives laboratory test including CBC, CMP, lipase, lactic acid. She has a mild lactic acid which is likely secondary to vomiting and dehydration. CT as well as ultrasound is negative for definitive diagnosis of the patient's pain. She is reevaluated she is resting comfortably, pain has improved. No further vomiting. I do feel this patient will benefit from outpatient follow-up and return parameters. She is invited to return to the emergency department if her symptoms should worsen. Undiagnosed new problem with uncertain prognosis? @ -No Drug Therapy requiring intensive monitoring for toxicity (Heparin, Nitro, Insulin, Cardizem)? @ -No Were any procedures done? @ -No Diagnosis/symptom? @ -Abdominal pain Acute, or Chronic, or Acute on Chronic? @ -Acute Uncomplicated (without systemic symptoms) or Complicated (systemic symptoms)? @ -Default Side effects of treatment? @ -No Exacerbation, Progression, or Severe Exacerbation? @ -No Poses a threat to life or bodily function? How? (Chest pain, [place], [place], pneumonia, PE, COPD, DKA, ARF, appy, cholecystitis, CVA, Diverticulitis, Homicidal, Suicidal, threat to staff... and all critical care pts) @ -Low risk at this time - Lab Data Result diagrams: 04/17/24 08:19 04/17/24 08:19 Lab Results 04/17/24 04/17/24 04/17/24 Range/Units 08:19 08:19 08:19 WBC 10.7 H (3.8-10.6) k/uL RBC 4.71 (3.80-5.40) m/uL Hgb 14.6 (11.4-16.0) gm/dL Hct 41.2 (34.0-46.0) % MCV 87.5 (80.0-100.0) fL MCH 31.1 (25.0-35.0) pg MCHC 35.6 (31.0-37.0) g/dL RDW 12.0 (11.5-15.5) % Plt Count 236 (150-450) k/uL MPV 7.5 Neutrophils % 82 % Lymphocytes % 12 % Monocytes % 4 % Eosinophils % 1 % Basophils % 0 % Neutrophils # 8.7 H (1.3-7.7) k/uL Lymphocytes # 1.3 (1.0-4.8) k/uL Monocytes # 0.4 (0-1.0) k/uL Eosinophils # 0.1 (0-0.7) k/uL Basophils # 0.0 (0-0.2) k/uL PT 10.2 (10.0-12.5) sec INR 0.9 (<1.2) APTT 25.2 (22.0-30.0) sec Sodium 139 (137-145) mmol/L Potassium 4.5 (3.5-5.1) mmol/L Chloride 106 (98-107) mmol/L Carbon Dioxide 20 L (22-30) mmol/L Anion Gap 13 mmol/L BUN 14 (7-17) mg/dL Creatinine 0.66 (0.52-1.04) mg/dL Est GFR (CKD-EPI)AfAm >90 (>60 ml/min/1.73 sqM) Est GFR (CKD-EPI)NonAf >90 (>60 ml/min/1.73 sqM) Glucose 110 H (74-99) mg/dL Lactic Ac Sepsis Rflx Plasma Lactic Acid Pramod (0.7-2.0) mmol/L Calcium 10.0 (8.4-10.2) mg/dL Total Bilirubin 0.7 (0.2-1.3) mg/dL AST 20 (14-36) U/L ALT 16 (4-34) U/L Alkaline Phosphatase 71 (38-126) U/L Total Protein 7.7 (6.3-8.2) g/dL Albumin 4.9 (3.5-5.0) g/dL Amylase 46 (30-110) U/L Lipase 46 (23-300) U/L HCG, Quant <2.4 mIU/mL 04/17/24 04/17/24 Range/Units 08:19 08:41 WBC (3.8-10.6) k/uL RBC (3.80-5.40) m/uL Hgb (11.4-16.0) gm/dL Hct (34.0-46.0) % MCV (80.0-100.0) fL MCH (25.0-35.0) pg MCHC (31.0-37.0) g/dL RDW (11.5-15.5) % Plt Count (150-450) k/uL MPV Neutrophils % % Lymphocytes % % Monocytes % % Eosinophils % % Basophils % % Neutrophils # (1.3-7.7) k/uL Lymphocytes # (1.0-4.8) k/uL Monocytes # (0-1.0) k/uL Eosinophils # (0-0.7) k/uL Basophils # (0-0.2) k/uL PT (10.0-12.5) sec INR (<1.2) APTT (22.0-30.0) sec Sodium (137-145) mmol/L Potassium (3.5-5.1) mmol/L Chloride (98-107) mmol/L Carbon Dioxide (22-30) mmol/L Anion Gap mmol/L BUN (7-17) mg/dL Creatinine (0.52-1.04) mg/dL Est GFR (CKD-EPI)AfAm (>60 ml/min/1.73 sqM) Est GFR (CKD-EPI)NonAf (>60 ml/min/1.73 sqM) Glucose (74-99) mg/dL Lactic Ac Sepsis Rflx Y Plasma Lactic Acid Pramod 2.3 H* (0.7-2.0) mmol/L Calcium (8.4-10.2) mg/dL Total Bilirubin (0.2-1.3) mg/dL AST (14-36) U/L ALT (4-34) U/L Alkaline Phosphatase (38-126) U/L Total Protein (6.3-8.2) g/dL Albumin (3.5-5.0) g/dL Amylase (30-110) U/L Lipase (23-300) U/L HCG, Quant mIU/mL Disposition Clinical Impression: Abdominal pain Disposition: HOME SELF-CARE Condition: Fair Instructions (If sedation given, give patient instructions): Abdominal Pain (ED) Is patient prescribed a controlled substance at d/c from ED?: No Referrals: None,Stated [Primary Care Provider] - 1-2 days Roxi Joaquin MD [STAFF PHYSICIAN] - 1-2 days Time of Disposition: 10:52
[2024-04-17 08:54] LABS: HCG,Quantitative Serum <2.4 mIU/mL
--- NOTE | 2024-04-17 09:17 | US ---
EXAMINATION TYPE: US gallbladder DATE OF EXAM: 04/17/2024 COMPARISON: [place] 2022, [place] 2022, [place] 2022 CLINICAL INDICATION: Female, 28 years old with history of epigastric pain; Intermittent abdominal haresh n x 2 weeks. Vomiting today. TECHNIQUE: Grayscale and color Doppler imaging of the right upper quadrant. FINDINGS: EXAM MEASUREMENTS: Liver Length: 18.1 cm Gallbladder Wall: 0.21 cm CBD: 0.54 cm Right Kidney: 10.2 x 5.5 x 4.8 cm SUPERVISORY HISTORIAN NOTES: Exam is limited due to gas. Pancreas: Hyperechoic. Tail is obscured. Liver: Enlarged. Appears coarse/heterogeneous with increased echogenicity. Gallbladder: Appears anechoic. Evidence for sonographic Rosa's sign: No CBD: Appears wnl Right Kidney: No hydronephrosis or masses seen IMPRESSION: 1. Hepatomegaly with some mild fatty gestation. [facility], Workstation: [email or web address], 04/17/2024 9:15 AM
[2024-04-17 09:35] VITALS: TEMP 97.6
[2024-04-17] MEDS: NICOTINE 21MG/24HR PATCH TRANSDERM STA (09:38)
[2024-04-17] MEDS: SODIUM CHLORIDE 0.9% 500 ML 500 ML IV ONE (09:39)
--- NOTE | 2024-04-17 09:55 | CT ---
EXAMINATION TYPE: CT abdomen pelvis w con DATE OF EXAM: 04/17/2024 COMPARISON: 09/14/2022 INDICATION: abd pain DLP: 736.4 mGycm, Automated exposure control for dose reduction was used. CONTRAST: 100 mL of Isovue 300. Study performed without Oral Contrast TECHNIQUE: Axial images were obtained from above the diaphragm to the pubic rami in the axial plane a t 5 mm thick sections. Reconstructed images are reviewed on the computer in the coronal plane. FINDINGS: Limited CT sections are obtained the lung bases. The lung bases are clear. CT ABDOMEN: Liver: There is moderate fatty infiltration to the liver. Liver measures 20.1 cm in craniocaudal dime nsion. Spleen: Normal Pancreas: Normal Adrenal glands: The adrenal glands are normal. Gallbladder: Normal Kidneys: No masses are evident. No hydronephrosis is present. There is a 2.1 cm left renal cyst. D elayed images were obtained through the kidneys, which remain unremarkable. Aorta: Normal Inferior vena cava: Normal. CT PELVIS: Loops of bowel within the abdomen and pelvis are normal. This study is without oral contrast limi ting evaluation Appendix: Normal as visualized. Urinary bladder: Normal. Genitourinary structures: Uterus appears unremarkable. Adnexa are normal. Osseous structures: No suspicious lytic or sclerotic lesions. IMPRESSION: 1. No suspicious abnormality account for severe abdominal pain. 2. Hepatomegaly and mild fatty infiltration of liver. [facility], Workstation: [facility], 04/17/2024 9:53 AM
[2024-04-17 10:44] VITALS: BP 97/52; PULSE 49
[2024-04-17 10:59] VITALS: RESP 16
== END 2024-04-17 11:05 | disposition home or self-care (01) ==
LOC: EC 07:42
CPT/HCPCS: 36415; 74177; 76705; 80053; 82150; 83605; 83690; 84702; 85025; 85610; 85730; 96361; 96374; 96375; 99284